=== PATIENT | male | born 1975 | race African-American/Black ===

== ENCOUNTER 2022-11-08 13:34 | Inpatient (IN) | payer OTHER ==
[2022-11-08 16:17] VITALS: BMI 20.7
[2022-11-08] MEDS ORDERED: POLYETHYLENE GLYCOL (HEALTHYLAX) 3350 17 GM PACKET PO PRN (16:47)
[2022-11-08] MEDS ORDERED: IBUPROFEN 600 MG TABLET (FP) PO PRN (16:47)
[2022-11-08] MEDS ORDERED: AMMONIUM LACTATE 12% LOTION 225 GM BOTTLE TP PRN (16:47)
[2022-11-08] MEDS ORDERED: hydrOXYzine PAMOATE 25 MG CAPSULE (FP) PO PRN (16:47)
[2022-11-08] MEDS ORDERED: NICOTINE POLACRILEX 2 MG GUM BUC PRN (16:47)
[2022-11-08] MEDS ORDERED: P-EPHED 60MG/TRIPROLIDI 2.5MG TABLET PO PRN (16:47)
[2022-11-08] MEDS ORDERED: NALOXONE HCL 0.4 MG/ML VIAL IM PRN (16:47)
[2022-11-08] MEDS ORDERED: MAG HYDROX/AL HYDROX/SIMETH 30 ML UNIT-DOSE CUP PO PRN (16:47)
[2022-11-08] MEDS ORDERED: guaiFENesin 600 MG TABLET.ER (FP) PO PRN (16:47)
[2022-11-08] MEDS ORDERED: IBUPROFEN 400 MG TABLET (FP) PO PRN (16:47)
[2022-11-08] MEDS ORDERED: MAGNESIUM HYDROX 2400MG/30ML ORAL SUSPENSION 30 ML CUP PO PRN (16:47)
[2022-11-08] MEDS ORDERED: BENZOCAINE/MENTHOL (CHLORASEPTIC ) LOZENGE MM PRN (16:47)
[2022-11-08] MEDS ORDERED: COLLOIDAL OATMEAL 1 BAR EACH TP PRN (16:47)
[2022-11-08] MEDS ORDERED: LOPERAMIDE HCL 2 MG CAPSULE PO PRN (16:47)
[2022-11-08] MEDS ORDERED: ACETAMINOPHEN 325 MG TABLET (FP) PO PRN (16:47)
[2022-11-08] MEDS ORDERED: NALOXONE HCL (KLOXXADO) 8 MG SPRAY NS PRN (16:47)
[2022-11-08] MEDS ORDERED: BENZONATATE 200 MG CAPSULE PO PRN (16:47)
[2022-11-08] MEDS ORDERED: TUBERCULIN PPD 5 TU/0.1ML VIAL ID ONE (19:09)
[2022-11-08] MEDS ORDERED: HYDROCORTISONE 0.5% TOPICAL CREAM 30 GM TUBE TP PRN (19:16)
[2022-11-08] MEDS ORDERED: TUBERCULIN PPD 5 TU/0.1ML SYRINGE (IN PATIENT USE ONLY) ID ONE (20:00)
[2022-11-08] MEDS: MELATONIN 5 MG TABLETS PO SCH (21:42)
[2022-11-08] MEDS: THIAMINE HCL 100 MG TABLET (FP) PO SCH (21:42)
[2022-11-09 06:38] VITALS: RESP 18
[2022-11-09] MEDS: BICTEGRAV/EMTRICIT/TENOFOV (BIKTARVY) 50-200-25 MG TABLET PO SCH (11:15)
[2022-11-09] MEDS: PRENATAL VITAMINS W/ FOLIC ACID TABLET (FP) PO SCH (11:15)
[2022-11-09 11:36] LABS: HEMATOCRIT 35.5 % (35.4-49); HEMOGLOBIN 11.7 GM/dL (11.7-16.9); MCH 26.3 pg (25.7-33.7); MCHC 32.9 g/dl (32.0-35.9); MEAN CELL VOLUME 79.9 fl (80-96); MEAN PLT VOLUME 9.4 fl (7.5-11.1); PLATELET COUNT 283 10^3/uL (134-434); RBC 4.44 M/mm3 (4.00-5.60); RDW 14.6 % (11.9-15.9); WHITE BLOOD COUNT 5.6 K/mm3 (4.0-10.0)
[2022-11-09 11:49] LABS: POTASSIUM 4.3 mmol/L (3.5-5.1)
[2022-11-09 11:51] LABS: ALBUMIN 3.3 g/dl (3.4-5.0); BLOOD UREA NITROGEN 13.9 mg/dL (7-18); CALCIUM 8.9 mg/dL (8.5-10.1)
[2022-11-09 11:56] LABS: BILIRUBIN,TOTAL 0.5 mg/dL (0.2-1); TOT PROT 6.5 g/dl (6.4-8.2)
[2022-11-09 12:14] LABS: SYPHILIS W/ RPR CONF NON-REACTIVE (NONREACTIVE)
[2022-11-09] MEDS: MELATONIN 5 MG TABLETS PO SCH (21:24)
[2022-11-09] MEDS: THIAMINE HCL 100 MG TABLET (FP) PO SCH (21:24)
[2022-11-10 09:05] LABS: PH,URINE 6.5 (5.0-8.0); URINE APPEARANCE CLEAR; URINE BILIRUBIN NEGATIVE (NEGATIVE); URINE COLOR YELLOW; URINE GLUCOSE (UA) NEGATIVE (NEGATIVE); URINE KETONE NEGATIVE (NEGATIVE); URINE LEUK ESTERASE NEGATIVE (NEGATIVE); URINE NITRITE NEGATIVE (NEGATIVE); URINE PROTEIN NEGATIVE (NEGATIVE)
[2022-11-10] MEDS: BICTEGRAV/EMTRICIT/TENOFOV (BIKTARVY) 50-200-25 MG TABLET PO SCH (09:31)
[2022-11-10] MEDS: PRENATAL VITAMINS W/ FOLIC ACID TABLET (FP) PO SCH (09:31)
[2022-11-10] MEDS: THIAMINE HCL 100 MG TABLET (FP) PO SCH (21:28)
[2022-11-10] MEDS: MELATONIN 5 MG TABLETS PO SCH (21:28)
[2022-11-11] MEDS: PRENATAL VITAMINS W/ FOLIC ACID TABLET (FP) PO SCH (10:53)
[2022-11-11] MEDS: BICTEGRAV/EMTRICIT/TENOFOV (BIKTARVY) 50-200-25 MG TABLET PO SCH (10:53)
[2022-11-11] MEDS: MELATONIN 5 MG TABLETS PO SCH (21:29)
[2022-11-11] MEDS: THIAMINE HCL 100 MG TABLET (FP) PO SCH (21:29)
[2022-11-12] MEDS: BICTEGRAV/EMTRICIT/TENOFOV (BIKTARVY) 50-200-25 MG TABLET PO SCH (09:28)
[2022-11-12] MEDS: PRENATAL VITAMINS W/ FOLIC ACID TABLET (FP) PO SCH (09:28)
[2022-11-12] MEDS: MELATONIN 5 MG TABLETS PO SCH (21:45)
[2022-11-12] MEDS: THIAMINE HCL 100 MG TABLET (FP) PO SCH (21:45)
[2022-11-13 06:34] VITALS: TEMP 98.9
[2022-11-13] MEDS: BICTEGRAV/EMTRICIT/TENOFOV (BIKTARVY) 50-200-25 MG TABLET PO SCH (09:22)
[2022-11-13] MEDS: PRENATAL VITAMINS W/ FOLIC ACID TABLET (FP) PO SCH (09:22)
[2022-11-13 18:58] VITALS: BP 140/80; PULSE 86
[2022-11-13] MEDS: THIAMINE HCL 100 MG TABLET (FP) PO SCH (21:29)
[2022-11-13] MEDS: MELATONIN 5 MG TABLETS PO SCH (21:29)
== END 2022-11-13 19:03 | disposition home or self-care (01) | DRG 772 ==
LOC: YASAS 13:34 → Y3W 18:27
PROVIDERS: ADMIT Allergy & Immunology; ATTEND Surgery
PROC: HZ42ZZZ Group Counseling for Substance Abuse Treatment, Cognitive-Behavioral (ICD-10-PCS; principal; 2022-11-08)
DX: F10.20 Alcohol dependence, uncomplicated (principal); F14.20 Cocaine dependence, uncomplicated; F17.210 Nicotine dependence, cigarettes, uncomplicated; B20 Human immunodeficiency virus [HIV] disease; Z79.899 Other long term (current) drug therapy; Z28.310 Unvaccinated for COVID-19; Z28.9 Immunization not carried out for unspecified reason
CPT/HCPCS: 36415; 80053; 81003; 85027; 86780; 86803; 87811; C9803-CS; U0003; U0005